=== PATIENT | male | born 1945 | race Hispanic/Latino ===

== ENCOUNTER 2017-11-08 11:10 | Emergency (ER) | payer MEDICARE ==
[2017-11-08 11:11] VITALS: BMI 27.2
--- NOTE | 2017-11-08 12:01 | C.PDOC ---
History Of Present Illness 71 year old male, whose PMHx includes HTN and Rheumatoid Arthritis, presents to the ED accompanied by his and son for evaluation of elevated blood pressure which began 4 days ago. Patient reports he has been compliant with his current medications and denies any recent changes in medication. Patient reports occasional dizziness and chest pressure. Patient denies any chest pain or pressure currently. Patient also reports that he feels like his eyes are burning and his mouth is dry. Patient has not spoken to his physician. He went to the pharmacy today to check his blood pressure, where it was elevated, and took two tablets of 25mg Metoprolol (normally one tablet BID). Patient currently denies fever, chills, headache, dizziness, extremity numbness/ weakness. Per son, this begain about 4 days ago whern pt was outside doing usual errands, came out and was sob, generalized weakness, with burning eyes, then checked bp which was elevated. pt with elevated bp daily since then Time Seen by Provider: 11/08/17 11:25 Chief Complaint (Nursing): High Blood Pressure History Per: Patient, Family History/Exam Limitations: no limitations Onset/Duration Of Symptoms: Days (4) Current Symptoms Are (Timing): Still Present Associated Symptoms: denies: Chest Pain, Dizziness, Focal Weakness, Headache Quality Of Symptoms: Asymptomatic Exacerbating Factor(s): Neg: Recently Missed Doses Of Medication, Recent Change In Medication Additional History Per: Patient Past Medical History Reviewed: Historical Data, Nursing Documentation, Vital Signs Vital Signs: Last Vital Signs Temp 98.5 F 11/08/17 14:10 Pulse 55 L 11/08/17 14:10 Resp 16 11/08/17 14:10 BP 159/84 H 11/08/17 14:10 Pulse Ox 97 11/08/17 14:30 - Medical History PMH: Arthritis, HTN Surgical History: No Surg Hx Family History: States: Unknown Family Hx - Social History Hx Alcohol Use: No Hx Substance Use: No - Immunization History Hx Tetanus Toxoid Vaccination: No Hx Influenza Vaccination: No Hx Pneumococcal Vaccination: No Review Of Systems Constitutional: Negative for: Fever, Chills Eyes: Positive for: Other (burning sensation to eyes ) ENT: Positive for: Other (dry mouth ) Cardiovascular: Positive for: Other (elevated blood pressure ). Negative for: Chest Pain Neurological: Positive for: Dizziness. Negative for: Weakness, Numbness, Headache Physical Exam - Physical Exam Appears: Non-toxic, No Acute Distress ED Course And Treatment - Laboratory Results Result Diagrams: 11/08/17 12:52 11/08/17 12:52 ECG: Interpreted By Me, Viewed By Me ECG Rhythm: Sinus Bradycardia Interpretation Of ECG: Sinus bradycardia with first degree AV block. Moderate voltage criteria for LVH, may be normal variant. Rate From EC O2 Sat by Pulse Oximetry: 97 (on RA ) Pulse Ox Interpretation: Normal Medical Decision Making Medical Decision Making: Progress: pt with elevated bp, occasional dizzness, chest pressure, weakness,. sob. CT Head, EKG, CXR, and bloodwork ordered and reviewed. 312 pm pt feeling much better at this time, head ct neg for acute pathology. CXR with: Biapical pleural thickening with upper lobe granulomatous changes. Mild venous congestion. Diffuse increased interstitial lung markings. Mild patchy increased markings at the left lung base. Right hilar prominence. Tortuous ectatic aorta. Mild cardiomegaly. results of cxr discussed with patient, will start pt on zpak, to f/u with pmd tomorrow to review bp medications.pt and fa,torin understand and agree to plan. Disposition Counseled Patient/Family Regarding: Studies Performed, Diagnosis, Need For Followup, Rx Given - Disposition Referrals: Yohannes Hall MD [Staff Provider] - Disposition: HOME/ ROUTINE Disposition Time: 15:17 Condition: IMPROVED Additional Instructions: Please follow up with Dr Hall tomorrow, bring lab reports and results of cxr and head ct with you. Please have Dr Hall re-evaluate your blood pressure medications. Return to ER for any worse symptoms. Take Zithromax as prescribed. Prescriptions: Azithromycin [Z-Jose] 250 mg PO DAILY #6 tab Instructions: Pneumonia, Adult (DC), High Blood Pressure (DC) Forms: [facility] (Portuguese), General Discharge Instructions - Clinical Impression Clinical Impression: Hypertension, Abnormal chest xray - PA / PRISON OFFICER / Resident Statement MD/DO has reviewed & agrees with the documentation as recorded. - Scribe Statement The provider has reviewed the documentation as recorded by the Scribe (Erika Villarreal) All medical record entries made by the Scribe were at my direction and personally dictated by me. I have reviewed the chart and agree that the record accurately reflects my personal performance of the history, physical exam, medical decision making, and the department course for this patient. I have also personally directed, reviewed, and agree with the discharge instructions and disposition.
--- NOTE | 2017-11-08 12:37 | CT ---
PROCEDURE: CT HEAD WITHOUT CONTRAST. HISTORY: Headache. Dizziness. Hypertension. COMPARISON: None available. TECHNIQUE: Axial computed tomography images were obtained through the head/brain without intravenous contrast. Radiation dose: Total exam DLP = 798 mGy-cm. This CT exam was performed using one or more of the following dose reduction techniques: Automated exposure control, adjustment of the mA and/or kV according to patient size, and/or use of iterative reconstruction technique. FINDINGS: HEMORRHAGE: No intracranial hemorrhage. BRAIN: No mass effect or edema. Scattered focal lucencies in the subcortical and periventricular white matter suggestive for chronic microvascular ischemic change. Mild cerebellar atrophy. VENTRICLES: Unremarkable. No hydrocephalus. CALVARIUM: Unremarkable. PARANASAL SINUSES: Mucosal thickening of the ethmoid air cells. MASTOID AIR CELLS: Unremarkable as visualized. No inflammatory changes. OTHER FINDINGS: Intracranial arterial calcifications. Soft tissue nodule seen within the posterior soft tissues posterior to the occipital cranium on series 2, image 6 measuring 1.8 centimeters. IMPRESSION: Chronic microvascular ischemic change. Mild cerebellar atrophy. Mucosal thickening of the ethmoid air cells. If focal neurologic deficit persists, consider MRI.
--- NOTE | 2017-11-08 12:49 | RAD ---
Chest x-ray two views History: Chest pain. Comparison: None available. Findings: Biapical pleural thickening with upper lobe granulomatous changes. Mild venous congestion. Diffuse increased interstitial lung markings. Mild patchy increased markings at the left lung base. Right hilar prominence. Tortuous ectatic aorta. Mild cardiomegaly. Degenerative changes in the spine shoulders. Impression: Biapical pleural thickening with upper lobe granulomatous changes. Mild venous congestion. Diffuse increased interstitial lung markings. Mild patchy increased markings at the left lung base. Right hilar prominence. Tortuous ectatic aorta. Mild cardiomegaly.
[2017-11-08 12:56] LABS: BASO % 0.3 % (0.0-2.0); EOS # 0.2 K/uL (0.0-0.7); EOS % 2.2 % (0.0-4.0); HEMOGLOBIN 14.8 g/dL (12.0-18.0); LYMPH % 28.3 % (20.0-40.0); MEAN CORPUSCULAR HEMOGLOBIN 30.1 pg (27.0-31.0); MEAN CORPUSCULAR HGB CONC 34.5 g/dL (33.0-37.0); MEAN PLATELET VOLUME 8.7 fL (7.2-11.7); MONO # 0.7 K/uL (0.0-0.8); NEUT # 4.2 K/uL (1.8-7.0); NEUT % 59.2 % (50.0-75.0); NRBC % 0.1 % (0.0-2.0); RBC 4.93 Mil/uL (4.40-5.90); RED CELL DISTRIBUTION WIDTH 13.5 % (11.5-14.5)
[2017-11-08 13:09] LABS: ALB/GLOB RATIO 1.3 (1.0-2.1); ALBUMIN 4.4 g/dL (3.5-5.0); ALT/SGPT 30 U/L (21-72); AST/SGOT 28 U/L (17-59); BLOOD UREA NITROGEN 16 mg/dL (9-20); CALCIUM 9.7 mg/dl (8.6-10.4); GFR AFRICAN-AMERICAN > 60; GFR NON-AFRICAN AMERICAN > 60
[2017-11-08 15:40] VITALS: PULSE 53; RESP 18; TEMP 97.7; O2SAT 98
[2017-11-08 15:41] VITALS: BP 173/91
--- NOTE | 2017-11-10 13:59 | CARD ---
APPROVED REPORT EKG Measurement Heart [id number] <Conclusion> Sinus bradycardia with 1st degree AV block Moderate voltage criteria for LVH, may be normal variant Borderline ECG
== END 2017-11-08 15:37 | disposition home or self-care (01) ==
LOC: C.ER 11:10
DX: I10 Essential (primary) hypertension (principal); R91.8 Other nonspecific abnormal finding of lung field; M06.9 Rheumatoid arthritis, unspecified

== ENCOUNTER 2018-04-03 13:49 | Inpatient (IN) | payer MEDICARE ==
[2018-04-03 13:49] VITALS: BMI 27.2
[2018-04-03] MEDS ORDERED: Sodium Chloride 0.9% 1,000 ML IV ONE (14:14)
--- NOTE | 2018-04-03 14:19 | C.PDOC ---
History Of Present Illness 72 year old male with PMHx of enlarged prostate presents to the ED complaining of dysuria for 4 days and spiking fever for [address]. [address] Emli De La Garza prescribed Flomax 4 days ago, but symptoms keep worsening. He states he called Dr. Emil De La Garza last night who prescribed Levaquin and Phenazopyridine and advised him to come to the ER for evaluation. Time Seen by Provider: 04/03/18 14:11 Chief Complaint (Nursing): Male Genitourinary History Per: Patient History/Exam Limitations: no limitations Onset/Duration Of Symptoms: Days Current Symptoms Are (Timing): Still Present Associated Symptoms: Fever, Urinary Symptoms. denies: Nausea, Vomiting, Diarrhea, Back Pain Past Medical History Reviewed: Historical Data, Nursing Documentation, Vital Signs Vital Signs: Last Vital Signs Temp 98.4 F 04/03/18 14:06 Pulse 107 H 04/03/18 14:06 Resp 18 04/03/18 14:06 BP 125/68 04/03/18 14:06 Pulse Ox 100 04/03/18 15:47 - Medical History PMH: Arthritis, HTN Other Surgeries: Hx of surgeries Family History: States: Unknown Family Hx - Social History Hx Alcohol Use: No Hx Substance Use: No - Immunization History Hx Tetanus Toxoid Vaccination: No Hx Influenza Vaccination: No Hx Pneumococcal Vaccination: No Review Of Systems Constitutional: Positive for: Fever Gastrointestinal: Negative for: Nausea, Vomiting, Abdominal Pain, Diarrhea Genitourinary: Positive for: Dysuria, Frequency. Negative for: Hematuria Musculoskeletal: Negative for: Back Pain Physical Exam - Physical Exam Appears: Non-toxic, No Acute Distress Skin: Normal Color, Warm, Dry, Other (Afebrile ) Head: Atraumatic Eye(s): bilateral: Normal Inspection Nose: Normal Oral Mucosa: Moist Neck: Supple Chest: Symmetrical Cardiovascular: Rhythm Regular Respiratory: Normal Breath Sounds, No Rales, No Rhonchi, No Wheezing Gastrointestinal/Abdominal: Soft, No Tenderness, No Guarding, No Rebound Back: No CVA Tenderness Neurological/Psych: Oriented x3, Normal Speech Gait: Steady ED Course And Treatment - Laboratory Results Result Diagrams: 04/03/18 14:40 04/03/18 14:40 Lab Interpretation: Abnormal (WBC 21.6 with left shift, BUN 26, Cr 2.0, Urine nitriti positive) O2 Sat by Pulse Oximetry: 100 (RA) Pulse Ox Interpretation: Normal Progress Note: Obucher catheter inserted post void and returned 300 ml urine. Reevaluation Time: 15:44 Reassessment Condition: Improved (Heart rate normal and patient is comfortable after boucher inserted.) - Physician Consult Information Outcome Of Conversation: Case discussed with Dr De La Garza and Dr Hall. Patient to be admitted for IV antibiotics. Medical Decision Making Medical Decision Making: Plan - Labs - IV Fluids - UA - Reassess Disposition - Disposition Disposition: HOSPITALIZED Disposition Time: 15:47 Condition: STABLE - POA Present On Arrival: None - Clinical Impression Clinical Impression: Pyelonephritis, acute, Prostatic hypertrophy - Scribe Statement The provider has reviewed the documentation as recorded by the Scribe Olga Sigala All medical record entries made by the Scribe were at my direction and personally dictated by me. I have reviewed the chart and agree that the record accurately reflects my personal performance of the history, physical exam, medical decision making, and the department course for this patient. I have also personally directed, reviewed, and agree with the discharge instructions and disposition.
[2018-04-03 14:44] LABS: BASO % 0.1 % (0.0-2.0); HEMOGLOBIN 13.1 g/dL (12.0-18.0); LYMPH # 1.4 K/uL (1.0-4.3); LYMPH % 6.7 % (20.0-40.0); MEAN CORPUSCULAR HEMOGLOBIN 29.8 pg (27.0-31.0); MEAN CORPUSCULAR HGB CONC 34.6 g/dL (33.0-37.0); MEAN PLATELET VOLUME 9.2 fL (7.2-11.7); MONO # 1.6 K/uL (0.0-0.8); MONO % 7.6 % (0.0-10.0); NEUT # 18.5 K/uL (1.8-7.0); NEUT % 85.6 % (50.0-75.0); PLATELET COUNT 135 K/uL (130-400); RED CELL DISTRIBUTION WIDTH 12.9 % (11.5-14.5)
[2018-04-03 14:51] LABS: WHITE BLOOD COUNT 21.6 K/uL (4.8-10.8)
[2018-04-03 14:57] LABS: ALB/GLOB RATIO 1.2 (1.0-2.1); ALBUMIN 3.6 g/dL (3.5-5.0)
[2018-04-03 15:06] LABS: SQUAMOUS EPITHIAL < 1 /hpf (0-5); URINE BACTERIA OCC (<OCC); URINE BILIRUBIN NEGATIVE (NEGATIVE); URINE BLOOD 1+ (NEGATIVE); URINE COLOR Amber (YELLOW); URINE GLUCOSE (UA) NORMAL (Normal); URINE PROTEIN NEGATIVE (NEGATIVE)
[2018-04-03 15:07] LABS: URINE CLARITY SLHAZY (Clear); URINE LEUKOCYTE ESTERASE TRACE Leu/uL (Negative)
[2018-04-03 15:15] LABS: BANDS 1 % (0-2); MONOCYTE 6 % (0-10); TOTAL CELLS COUNTED 100
[2018-04-03 15:16] LABS: LYMPHOCYTE 5 % (20-40); NEUTROPHIL 88 % (50-75); PLATELET ESTIMATE NORMAL (NORMAL)
[2018-04-03] MEDS ORDERED: Ciprofloxacin 400mg/200ml D5W 400 MG/200 ML BAG IV STA (15:39)
[2018-04-03] MEDS ORDERED: Ciprofloxacin 400mg/200ml D5W 400 MG/200 ML BAG IVPB ONE (16:00)
[2018-04-03 16:10] LABS: VENOUS BLOOD GAS BASE EXCESS -5.6 mmol/L (0.0-2.0); VENOUS BLOOD GAS PCO2 30 mmHg (40-60); VENOUS BLOOD GAS PO2 38 mm/Hg (30-55); VENOUS BLOOD PH 7.39 (7.32-7.43)
[2018-04-03 17:50] VITALS: RESP 20
[2018-04-03] MEDS: Sodium Chloride 0.9% 1,000 ML IV SCH (20:00)
[2018-04-03] MEDS: Ciprofloxacin 400mg/200ml D5W 400 MG/200 ML BAG IVPB SCH (22:26)
[2018-04-04] MEDS: Ciprofloxacin 400mg/200ml D5W 400 MG/200 ML BAG IVPB SCH ×2 (06:01→17:58)
[2018-04-04] MEDS: Sodium Chloride 0.9% 1,000 ML IV SCH ×3 (06:08→17:59)
[2018-04-04] MEDS: Aspirin 325 mg EC Tablets PO SCH (09:42)
[2018-04-04] MEDS: Enoxaparin 40 mg Syringe SC SCH (09:42)
[2018-04-04] MEDS ORDERED: Home Med 1 UNIT (Febuxostat [Uloric] 80 MG) PO SCH (10:00)
--- NOTE | 2018-04-04 15:13 | CP.PCM.HP ---
History of Present Illness - History of Present Illness History of Present Illness: 72 years old male underwent a cystoscopy on 03/30/[address] Teressa De La Garza for a urinary retention. 2 days later he developed hypogastric pain and fever. He was subscribed Levaquin and Pyridium on 04/02/[address] De La Garza, but the fever and the hypogastric pain persisted, and the patient was advised by his Urologist to go to the ED for evaluation. In the ED, he was found to have a wbc: 21,000 and a urinary retention. A Patel catheter was inserted and the patient was given IV Cipro after urine and blood cultures were done. The patient is known to have a rheumatoid arthritis, on Retuxan every 6 months, a pout, a hypertension. Present on Admission - Present on Admission Any Indicators Present on Admission: No Review of Systems - Constitutional Constitutional: Anorexia, Chills, Fatigue, Fever - Genitourinary Genitourinary: Dysuria, Bladder Distension Additional comments: Hypogastric pain. Past Patient History - Infectious Disease Hx of Infectious Diseases: None - Tetanus Immunizations Tetanus Immunization: Unknown - Past Medical History & Family History Past Medical History?: Yes - Past Social History Smoking Status: Heavy Smoker > 10 Cigarettes Daily Alcohol: None Drugs: Denies Home Situation {Lives}: With Family Domestic Violence: Negative - CARDIAC Hx Cardiac Disorders: Yes Hx Hypertension: Yes - PULMONARY Hx Respiratory Disorders: No - NEUROLOGICAL Hx Neurological Disorder: No - HEENT Hx HEENT Problems: No - RENAL Hx Pyelonephritis: Yes - ENDOCRINE/METABOLIC Hx Endocrine Disorders: No - HEMATOLOGICAL/ONCOLOGICAL Hx Blood Disorders: No - INTEGUMENTARY Hx Dermatological Problems: No - MUSCULOSKELETAL/RHEUMATOLOGICAL Hx Musculoskeletal Disorders: No Hx Falls: No - GASTROINTESTINAL Hx Gastrointestinal Disorders: No - GENITOURINARY/GYNECOLOGICAL Hx Genitourinary Disorders: Yes Hx Prostate Problems: Yes Other/Comment: hx of blood in the urine - PSYCHIATRIC Hx Psychophysiologic Disorder: No Hx Substance Use: No - SURGICAL HISTORY Hx Surgeries: Yes Other/Comment: right knee - ANESTHESIA Hx Anesthesia: Yes Hx Anesthesia Reactions: No Hx Malignant Hyperthermia: No Meds Allergies/Adverse Reactions: Allergies Allergy/AdvReac Type Severity Reaction Status Date / Time infliximab Allergy REDNESS Verified 04/03/18 14:03 Physical Exam - Constitutional Appears: No Acute Distress - Head Exam Head Exam: NORMAL INSPECTION - Eye Exam Eye Exam: Normal appearance - ENT Exam ENT Exam: Normal Exam - Neck Exam Neck exam: Positive for: Normal Inspection - Respiratory Exam Respiratory Exam: Clear to Auscultation Bilateral, NORMAL BREATHING PATTERN - Cardiovascular Exam Cardiovascular Exam: REGULAR RHYTHM - GI/Abdominal Exam GI & Abdominal Exam: Normal Bowel Sounds, Soft - Rectal Exam Rectal Exam: Deferred - Exam Exam: NORMAL INSPECTION - Extremities Exam Extremities exam: Positive for: normal inspection - Back Exam Back exam: NORMAL INSPECTION - Neurological Exam Neurological exam: Alert, Oriented x3 - Psychiatric Exam Psychiatric exam: Anxious - Skin Skin Exam: Dry, Intact, Normal Color, Warm Results - Vital Signs Recent Vital Signs: Last Vital Signs Temp 97.7 F 04/04/18 08:15 Pulse 65 04/04/18 08:15 Resp 20 04/04/18 08:15 BP 120/77 04/04/18 09:44 Pulse Ox 95 04/04/18 08:15 - Labs Result Diagrams: 04/03/18 14:40 04/03/18 14:40 Labs: Laboratory Results - last 24 hr 04/03/18 04/03/18 04/03/18 14:40 14:42 16:05 Neutrophils % (Manual) 88 H Band Neutrophils % 1 Lymphocytes % (Manual) 5 L Monocytes % (Manual) 6 Platelet Estimate Normal RBC Morphology Normal pO2 38 VBG pH 7.39 VBG pCO2 30 L VBG HCO3 19.9 VBG Total CO2 19.1 L VBG O2 Sat (Calc) 75.0 H VBG Base Excess -5.6 L VBG Potassium 2.6 L Sodium 142.0 Chloride 114.0 H Glucose 85 Lactate 1.0 Venous Blood Potassium 2.6 L Urine Color Drea Urine Clarity [place] Urine pH 5.0 Ur Specific [place] 1.013 Urine Protein Negative Urine Glucose (UA) Normal Urine Ketones Negative Urine Blood 1+ H Urine Nitrate Positive H Urine Bilirubin Negative Urine Urobilinogen 4.0 Ur Leukocyte Esterase Trace H Urine WBC (Auto) 10 H Urine RBC (Auto) 18 H Ur Squamous Epith Cells < 1 Urine Bacteria Occ H Assessment & Plan (1) Sepsis due to urinary tract infection Assessment and Plan: To continue IV Cipro 400 mg IV q 12h., pending urinary and blood cultures. Status: Acute (2) Urinary retention due to benign prostatic hyperplasia Assessment and Plan: To continue Patel catheter. Consult Dr Teressa De La Garza. Status: Acute (3) Rheumatoid arthritis Status: Chronic Decision To Admit - Pt Status Changed To: Hospital Disposition Of: Inpatient - Admit Certification Admit to Inpatient:: After my assessment, the patient will require hospitalization for at least two midnights. This is because of the severity of symptoms shown, intensity of services needed, and/or the medical risk in this patient being treated as an outpatient. - InPatient: Physician Admission Certification:: After my assessments, the patient requires hospitalization for at least two midnights. - . Bed Request Type: Regular Admitting Physician: Yohannes Hall
[2018-04-05] MEDS: Sodium Chloride 0.9% 1,000 ML IV SCH ×2 (05:58→09:31)
[2018-04-05] MEDS: Ciprofloxacin 400mg/200ml D5W 400 MG/200 ML BAG IVPB SCH (06:00)
[2018-04-05 07:24] LABS: BASO % 0.2 % (0.0-2.0); EOS # 0.1 K/uL (0.0-0.7); EOS % 1.1 % (0.0-4.0); HEMOGLOBIN 12.4 g/dL (12.0-18.0); LYMPH # 1.5 K/uL (1.0-4.3); LYMPH % 20.3 % (20.0-40.0); MEAN CELL VOLUME 87.4 fL (80.0-94.0); MEAN CORPUSCULAR HEMOGLOBIN 29.3 pg (27.0-31.0); MEAN CORPUSCULAR HGB CONC 33.5 g/dL (33.0-37.0); MEAN PLATELET VOLUME 9.7 fL (7.2-11.7); MONO # 0.5 K/uL (0.0-0.8); MONO % 6.6 % (0.0-10.0); NEUT # 5.4 K/uL (1.8-7.0); NEUT % 71.8 % (50.0-75.0); RBC 4.22 Mil/uL (4.40-5.90); RED CELL DISTRIBUTION WIDTH 13.3 % (11.5-14.5)
[2018-04-05 07:28] LABS: WHITE BLOOD COUNT 7.5 K/uL (4.8-10.8)
[2018-04-05 07:52] LABS: ALB/GLOB RATIO 1.1 (1.0-2.1); ALBUMIN 3.1 g/dL (3.5-5.0); ALT/SGPT 57 U/L (21-72); AST/SGOT 52 U/L (17-59); BLOOD UREA NITROGEN 18 mg/dL (9-20); GFR AFRICAN-AMERICAN > 60; GFR NON-AFRICAN AMERICAN > 60
[2018-04-05] MEDS: Enoxaparin 40 mg Syringe SC SCH (09:22)
[2018-04-05] MEDS: Aspirin 325 mg EC Tablets PO SCH (09:22)
--- NOTE | 2018-04-05 23:47 | CP.PCM.PN ---
Subjective - Date & Time of Evaluation Date of Evaluation: 04/05/18 Time of Evaluation: 13:45 - Subjective Subjective: Patient afebrile, feels better. WBC: 7,700 BUN: 17 creatinine: 1.0. Urine culture reveals Pseudomonas resistant to Cipro, Cefazolin and sensitive to Cefepime. Will discontinue Ciproand start Cefipime and ask for an ID evaluation , because the patient is suppose to get Retuxan treatment next week for his Rheumatoid arthritis. Patient was also seen by Dr Teressa De La Garza who consider to leave the Patel catheter in. Objective - Vital Signs/Intake and Output Vital Signs (last 24 hours): Temp Pulse Resp BP Pulse Ox 98.3 F 68 20 154/75 H 97 04/05/18 20:29 04/05/18 20:29 04/05/18 20:29 04/05/18 20:29 04/05/18 20:29 Intake and Output: 04/05/18 04/06/18 18:59 06:59 Intake Total 1280 480 Output Total 475 600 Balance 805 -120 - Medications Medications: Current Medications Acetaminophen (Tylenol 325mg Tab) 650 mg PO Q6 PRN PRN Reason: Fever >100.4 F Last Admin: 04/04/18 22:05 Dose: 650 mg Amlodipine Besylate (Norvasc) 5 mg PO DAILY [facility] Last Admin: 04/05/18 14:36 Dose: 5 mg Aspirin (Ecotrin) 325 mg PO DAILY [facility] Last Admin: 04/05/18 09:22 Dose: 325 mg Celecoxib (Celebrex) 200 mg PO DAILY [facility] Last Admin: 04/05/18 09:22 Dose: 200 mg Docusate Sodium (Colace) 100 mg PO BID [facility] Last Admin: 04/05/18 18:17 Dose: 100 mg Enoxaparin Sodium (Lovenox) 40 mg SC DAILY [facility] Last Admin: 04/05/18 09:22 Dose: 40 mg Home Med (Febuxostat [Uloric]) 80 mg PO DAILY [facility] Cefepime HCl 1 gm/ Dextrose 50 mls @ 100 mls/hr IVPB Q12H [facility] PRN Reason: Protocol Last Admin: 04/05/18 17:00 Dose: 100 mls/hr Metoprolol Tartrate (Lopressor) 25 mg PO BID [facility] Last Admin: 04/05/18 18:17 Dose: 25 mg Pneumococcal Polyvalent Vaccine (Pneumovax 23 Vaccine) 0.5 ml IM .ONCE ONE Stop: 04/06/18 10:01 Tamsulosin HCl (Flomax) 0.4 mg PO DAILY STEPHANIE Last Admin: 04/05/18 09:22 Dose: 0.4 mg - Labs Labs: 04/05/18 07:01 04/05/18 07:01 - Constitutional Appears: No Acute Distress - Head Exam Head Exam: NORMAL INSPECTION - Eye Exam Eye Exam: Normal appearance - ENT Exam ENT Exam: Normal Exam - Neck Exam Neck Exam: Normal Inspection - Respiratory Exam Respiratory Exam: Clear to Ausculation Bilateral, NORMAL BREATHING PATTERN - Cardiovascular Exam Cardiovascular Exam: REGULAR RHYTHM - GI/Abdominal Exam GI & Abdominal Exam: Soft, Normal Bowel Sounds - Rectal Exam Rectal Exam: Deferred - Exam Exam: NORMAL INSPECTION - Extremities Exam Extremities Exam: Normal Inspection - Back Exam Back Exam: NORMAL INSPECTION - Neurological Exam Neurological Exam: Alert, Awake, Normal Gait, Oriented x3 - Psychiatric Exam Psychiatric exam: Anxious - Skin Skin Exam: Dry, Intact, Warm Assessment and Plan (1) Sepsis due to urinary tract infection Assessment & Plan: To continue IV antibiotic. Status: Acute (2) Urinary retention due to benign prostatic hyperplasia Assessment & Plan: Patel catheter as per Urologist. Status: Acute (3) Rheumatoid arthritis Status: Chronic
[2018-04-06] MEDS ORDERED: Pneumococcal 23-Valent Vaccine IM ONE (10:00)
[2018-04-06] MEDS: Enoxaparin 40 mg Syringe SC SCH (11:40)
[2018-04-06] MEDS: Aspirin 325 mg EC Tablets PO SCH (11:40)
--- NOTE | 2018-04-06 12:30 | CP.PCM.CON ---
History of Present Illness - History of Present Illness History of Present Illness: 72 year old male with PMHx of enlarged prostate presents to the ED complaining of dysuria for 4 days and spiking fever for [address]. [address] Emil De La Garza prescribed Flomax 4 days ago, but symptoms keep worsening. He states he called Dr. Emil De La Garza last night who prescribed Levaquin and Phenazopyridine and advised him to come to the ER for evaluation. started on empiric IV rx for pyelo - Medical History PMH: Arthritis, HTN Review of Systems - Review of Systems All systems: reviewed and no additional remarkable complaints except - Constitutional Constitutional: Anorexia, Chills - EENT Eyes: absent: As Per HPI, Blind Spots, Blurred Vision, Change in Vision, Decreased Night Vision, Diplopia, Discharge, Dry Eye, Exophthalmos, Floaters, Irritation, Itchy Eyes, Loss of Peripheral Vision, Pain, Photophobia, Requires Corrective Lenses, Sees Flashes, Spots in Vision, Tunnel Vision, Other Visual Disturbances, Loss of Vision, Other Ears: absent: As Per HPI, Decreased Hearing, Ear Discharge, Ear Pain, Tinnitus, Abnormal Hearing, Disequilibrium, Dizziness, Other Nose/Mouth/Throat: absent: As Per HPI, Epistaxis, Nasal Congestion, Nasal Discharge, Nasal Obstruction, Nasal Trauma, Nose Pain, Post Nasal Drip, Sinus Pain, Sinus Pressure, Bleeding Gums, Change in Voice, Dental Pain, Dry Mouth, Dysphagia, Halitosis, Hoarsness, Lip Swelling, Mouth Lesions, Mouth Pain, Odynophagia, Sore Throat, Throat Swelling, Tongue Swelling, Facial Pain, Neck Pain, Neck Mass, Other - Cardiovascular Cardiovascular: absent: As Per HPI, Acrocyanosis, Chest Pain, Chest Pain at Rest , Chest Pain with Activity, Claudication, Diaphoresis, Dyspnea, Dyspnea on Exertion, Edema, Irregular Heart Rhythm, Pain Radiating to Arm/Neck/Jaw, Leg Edema, Leg Ulcers, Lightheadedness, Orthopnea, Palpitations, Paroxysmal Nocturnal Dyspnea, Pedal Edema, Radiating Pain, Rapid Heart Rate, Slow Heart Rate, Syncope, Other - Respiratory Respiratory: absent: As Per HPI, Cough, Dyspnea, Hemoptysis, Dyspnea on Exertion , Wheezing, Snoring, Stridor, Pain on Inspiration, Chest Congestion, Excessive Mucous Production, Change in Mucous Color, Pain with Coughing, Other - Gastrointestinal Gastrointestinal: absent: As Per HPI, Abdominal Pain, Belching, Bloating, Change in Bowel Habits, Change in Stool Character, Coffee Ground Emesis, Constipation, Cramping, Diarrhea, Dyspepsia, Dysphagia, Early Satiety, Excessive Flatus, Fecal Incontinence, Heartburn, Hematemesis, Hematochezia, Loose Stools, Melena, Nausea, Odynophagia, Temesmus, Vomiting, Other - Genitourinary Genitourinary: As Per HPI - Musculoskeletal Musculoskeletal: absent: As Per HPI, Abnormal Gait, Arthralgias, Atrophy, Back Pain, Deformity, Joint Swelling, Limited Range of Motion, Loss of Height, Muscle Cramps, Muscle Weakness, Myalgias, Neck Pain, Numbness, Radiating Pain into Limb, Stiffness, Tingling, Other - Integumentary Integumentary: absent: As Per HPI, Acne, Alopecia, Bleeding Lesions, Change in Hair, Change in Nails, Change in Pigmentation, Changing Lesions, Dry Skin, Erythema, Furuncle, Hirsutism, Lesions, New Lesions, Non-Healing Lesions, Photosensitivity, Pruritus, Rash, Skin Pain, Skin Ulcer, Sores, Striae, Swelling , Unusual Bruising, Wounds, Jaundice, Other - Neurological Neurological: absent: As Per HPI, Abnormal Gait, Abnormal Hearing, Abnormal Movements, Abnormal Speech, Behavioral Changes, Burning Sensations, Confusion, Convulsions, Disequilibrium, Dizziness, Numbness, Focal Weakness, Frequent Falls , Headaches, Lack of Coordination, Loss of Vision, Memory Loss, Paresthesias, Radicular Pain, Restless Legs, Sensory Deficit, Syncope, Tingling, Tremor, Vertigo, Weakness, Other Visual Disturbances, Other - Psychiatric Psychiatric: absent: As Per HPI, Abnormal Sleep Pattern, Anhedonia, Anxiety, Auditory Hallucinations, Behavioral Changes, Change in Appetite, Change in Libido, Confusion, Depression, Difficulty Concentrating, Hallucinations, Homicidal Ideation, Hopelessness, Irritability, Memory Loss, Mood Swings, Panic Attacks, Paranoia, Suicidal Ideation, Visual Hallucinations, Tactile Hallucinations, Other - Endocrine Endocrine: absent: As Per HPI, Change in Body Appearance, Change in Libido, Cold Intolorance, Deepening of Voice, Excessive Sweating, Fatigue, Flushing, Heat Intolorance, Increase in Ring/Shoe/Hat Size, Palpitations, Polydipsia, Polyphagia, Polyuria, Other - Hematologic/Lymphatic Hematologic: absent: As Per HPI, Easy Bleeding, Easy Bruising, Lymphadenopathy, Other Past Patient History - Infectious Disease Hx of Infectious Diseases: None - Tetanus Immunizations Tetanus Immunization: Unknown - Past Medical History & Family History Past Medical History?: Yes - Past Social History Smoking Status: Heavy Smoker > 10 Cigarettes Daily Alcohol: None Drugs: Denies Home Situation {Lives}: With Family Domestic Violence: Negative - CARDIAC Hx Cardiac Disorders: Yes Hx Hypertension: Yes - PULMONARY Hx Respiratory Disorders: No - NEUROLOGICAL Hx Neurological Disorder: No - HEENT Hx HEENT Problems: No - RENAL Hx Pyelonephritis: Yes - ENDOCRINE/METABOLIC Hx Endocrine Disorders: No - HEMATOLOGICAL/ONCOLOGICAL Hx Blood Disorders: No - INTEGUMENTARY Hx Dermatological Problems: No - MUSCULOSKELETAL/RHEUMATOLOGICAL Hx Musculoskeletal Disorders: No Hx Falls: No - GASTROINTESTINAL Hx Gastrointestinal Disorders: No - GENITOURINARY/GYNECOLOGICAL Hx Genitourinary Disorders: Yes Hx Prostate Problems: Yes Other/Comment: hx of blood in the urine - PSYCHIATRIC Hx Psychophysiologic Disorder: No Hx Substance Use: No - SURGICAL HISTORY Hx Surgeries: Yes Other/Comment: right knee - ANESTHESIA Hx Anesthesia: Yes Hx Anesthesia Reactions: No Hx Malignant Hyperthermia: No Meds Allergies/Adverse Reactions: Allergies Allergy/AdvReac Type Severity Reaction Status Date / Time infliximab Allergy REDNESS Verified 04/03/18 14:03 - Medications Medications: Current Medications Acetaminophen (Tylenol 325mg Tab) 650 mg PO Q6 PRN PRN Reason: Fever >100.4 F Last Admin: 04/04/18 22:05 Dose: 650 mg Amlodipine Besylate (Norvasc) 5 mg PO DAILY [facility] Last Admin: 04/06/18 11:40 Dose: 5 mg Aspirin (Ecotrin) 325 mg PO DAILY [facility] Last Admin: 04/06/18 11:40 Dose: 325 mg Celecoxib (Celebrex) 200 mg PO DAILY [facility] Last Admin: 04/06/18 11:40 Dose: 200 mg Docusate Sodium (Colace) 100 mg PO BID [facility] Last Admin: 04/06/18 11:40 Dose: 100 mg Enoxaparin Sodium (Lovenox) 40 mg SC DAILY [facility] Last Admin: 04/06/18 11:40 Dose: 40 mg Home Med (Febuxostat [Uloric]) 80 mg PO DAILY [facility] Cefepime HCl 1 gm/ Dextrose 50 mls @ 100 mls/hr IVPB Q12H [facility] PRN Reason: Protocol Last Admin: 04/06/18 04:45 Dose: 100 mls/hr Metoprolol Tartrate (Lopressor) 25 mg PO BID [facility] Last Admin: 04/06/18 11:43 Dose: 25 mg Tamsulosin HCl (Flomax) 0.4 mg PO DAILY [facility] Last Admin: 04/06/18 11:40 Dose: 0.4 mg Physical Exam - Constitutional Appears: Non-toxic, Chronically Ill - Head Exam Head Exam: NORMOCEPHALIC - Eye Exam Eye Exam: PERRL - ENT Exam ENT Exam: Mucous Membranes Dry - Neck Exam Neck exam: Negative for: Lymphadenopathy - Respiratory Exam Respiratory Exam: Decreased Breath Sounds - Cardiovascular Exam Cardiovascular Exam: REGULAR RHYTHM - GI/Abdominal Exam GI & Abdominal Exam: Diminished Bowel Sounds - Rectal Exam Rectal Exam: Deferred - Exam Exam: NORMAL INSPECTION - Extremities Exam Extremities exam: Negative for: pedal edema - Back Exam Back exam: absent: CVA tenderness (L), CVA tenderness (R) - Neurological Exam Neurological exam: Alert, CN II-XII Intact, Oriented x3, Reflexes Normal - Psychiatric Exam Psychiatric exam: Normal Mood - Skin Skin Exam: Dry Results - Vital Signs Recent Vital Signs: Last Vital Signs Temp 98.7 F 04/06/18 07:00 Pulse 68 04/06/18 07:00 Resp 20 04/06/18 07:00 BP 149/75 04/06/18 11:43 Pulse Ox 95 04/06/18 07:00 - Labs Result Diagrams: 04/05/18 07:01 04/05/18 07:01 Assessment & Plan (1) Prostatic hypertrophy Status: Acute (2) Pyelonephritis, acute Status: Acute (3) Sepsis due to urinary tract infection Status: Acute (4) Urinary retention due to benign prostatic hyperplasia Status: Acute (5) Rheumatoid arthritis Status: Chronic - Assessment and Plan (Free Text) Assessment: await cultures cont IV rx failed out pt rx
--- NOTE | 2018-04-06 17:33 | PCM.URO ---
Urology Progress Note - Objective Lab Studies: Reviewed (pt voiding well will check post void) Intake & Output: Intake & Output 04/05/18 04/06/18 04/06/18 18:59 06:59 18:59 Intake Total 1280 830 600 Output Total 475 1800 1350 Balance 805 -970 -750 Intake: Intake, IV Amount 800 50 Right Antecubital 800 50 Oral 480 780 600 Output: Urine 475 1800 1350 Urethral (Patel) 475 1800 1000 Urine, Voided 350 Other: # Bowel Movements 0 0 1 Vital Signs: Vital Signs - 24 hr 04/05/18 04/05/18 04/06/18 18:17 20:29 00:12 Temperature 98.3 F 98.1 F Pulse Rate 68 65 Respiratory 20 20 Rate Blood Pressure 125/77 154/75 H 155/76 H O2 Sat by Pulse 97 98 Oximetry 04/06/18 04/06/18 04/06/18 05:30 07:00 11:43 Temperature 98.7 F Pulse Rate 73 68 Respiratory 20 20 Rate Blood Pressure 154/75 H 149/75 149/75 O2 Sat by Pulse 97 95 Oximetry 04/06/18 15:00 Temperature 98.4 F Pulse Rate 60 Respiratory 20 Rate Blood Pressure 141/73 O2 Sat by Pulse 94 L Oximetry
--- NOTE | 2018-04-06 23:49 | CP.PCM.PN ---
Subjective - Date & Time of Evaluation Date of Evaluation: 04/06/18 Time of Evaluation: 17:45 - Subjective Subjective: Patient seen by Dr York and Dr Teressa De La Garza. Afebrile. Has no complaint. On IV Cefepime. Objective - Vital Signs/Intake and Output Vital Signs (last 24 hours): Temp Pulse Resp BP Pulse Ox 98.5 F 69 20 143/71 97 04/06/18 23:40 04/06/18 23:40 04/06/18 23:40 04/06/18 23:40 04/06/18 23:40 Intake and Output: 04/06/18 04/07/18 18:59 06:59 Intake Total 600 550 Output Total 1350 600 Balance -750 -50 - Medications Medications: Current Medications Acetaminophen (Tylenol 325mg Tab) 650 mg PO Q6 PRN PRN Reason: Fever >100.4 F Last Admin: 04/04/18 22:05 Dose: 650 mg Amlodipine Besylate (Norvasc) 5 mg PO DAILY [facility] Last Admin: 04/06/18 11:40 Dose: 5 mg Aspirin (Ecotrin) 325 mg PO DAILY [facility] Last Admin: 04/06/18 11:40 Dose: 325 mg Celecoxib (Celebrex) 200 mg PO DAILY [facility] Last Admin: 04/06/18 11:40 Dose: 200 mg Docusate Sodium (Colace) 100 mg PO BID [facility] Last Admin: 04/06/18 17:51 Dose: 100 mg Enoxaparin Sodium (Lovenox) 40 mg SC DAILY [facility] Last Admin: 04/06/18 11:40 Dose: 40 mg Home Med (Febuxostat [Uloric]) 80 mg PO DAILY [facility] Cefepime HCl 1 gm/ Dextrose 50 mls @ 100 mls/hr IVPB Q12H [facility] PRN Reason: Protocol Last Admin: 04/06/18 16:29 Dose: 100 mls/hr Metoprolol Tartrate (Lopressor) 25 mg PO BID [facility] Last Admin: 04/06/18 17:51 Dose: 25 mg Tamsulosin HCl (Flomax) 0.4 mg PO DAILY [facility] Last Admin: 04/06/18 11:40 Dose: 0.4 mg - Labs Labs: 04/05/18 07:01 04/05/18 07:01 - Constitutional Appears: No Acute Distress - Head Exam Head Exam: NORMAL INSPECTION - Eye Exam Eye Exam: Normal appearance, PERRL - ENT Exam ENT Exam: Normal Exam - Neck Exam Neck Exam: Normal Inspection - Respiratory Exam Respiratory Exam: Clear to Ausculation Bilateral, NORMAL BREATHING PATTERN - Cardiovascular Exam Cardiovascular Exam: REGULAR RHYTHM - GI/Abdominal Exam GI & Abdominal Exam: Soft, Normal Bowel Sounds - Rectal Exam Rectal Exam: Deferred - Extremities Exam Extremities Exam: Normal Inspection - Back Exam Back Exam: NORMAL INSPECTION - Neurological Exam Neurological Exam: Alert, Awake, Normal Gait, Oriented x3 - Psychiatric Exam Psychiatric exam: Anxious - Skin Skin Exam: Dry, Intact, Normal Color, Warm Assessment and Plan (1) Sepsis due to urinary tract infection Assessment & Plan: To continue IV antibiotic. Status: Acute (2) Urinary retention due to benign prostatic hyperplasia Assessment & Plan: As per Urology. Status: Acute (3) Rheumatoid arthritis Status: Chronic
[2018-04-07] MEDS: Aspirin 325 mg EC Tablets PO SCH (10:01)
[2018-04-07] MEDS: Enoxaparin 40 mg Syringe SC SCH (10:01)
[2018-04-07] MEDS: Home Med 1 UNIT (Febuxostat [Uloric] 80 MG) PO SCH (10:05)
--- NOTE | 2018-04-07 10:29 | US ---
Date of service: 04/06/2018 PROCEDURE: Ultrasound of the pelvis HISTORY: retention COMPARISON: None available. TECHNIQUE: Sonographic evaluation of the bladder and prostate were performed. FINDINGS: Unremarkable without wall thickening or intraluminal debris. No calculus or gross mass lesion. No free fluid in pelvis. Bilateral ureteral jets were not visualized. Prevoid Volume: 129.1 cc. Post void residual: 96.0 cc. Prostate volume measures 49.6 cc. IMPRESSION: Unremarkable sonogram of the bladder. No significant postvoid residual volume. Prostatomegaly.
--- NOTE | 2018-04-07 14:21 | PCM.URO ---
Urology Progress Note - General General: No Complaints - Subjective Abdominal Pain: No Flank Pain: No Nausea: No Vomiting: No Voiding Well: Yes Dysuria: No Hematuria: No [place] Stream: Yes Dsypnea: No Fever & Chills: No - Objective Lab Studies: Reviewed (decrased creat and decreased WBC) Intake & Output: Intake & Output 04/06/18 04/07/18 04/07/18 18:59 06:59 18:59 Intake Total 600 750 Output Total 1350 1400 Balance -750 -650 Intake: Intake, IV Amount 100 Right Antecubital 100 Oral 600 650 Output: Urine 1350 1400 Urethral (Patel) 1000 Urine, Voided 350 1400 Other: # Bowel Movements 1 0 Vital Signs: Vital Signs - 24 hr 04/06/18 04/06/18 04/06/18 15:00 17:51 23:40 Temperature 98.4 F 98.5 F Pulse Rate 60 69 Respiratory 20 20 Rate Blood Pressure 141/73 138/77 143/71 O2 Sat by Pulse 94 L 97 Oximetry 04/07/18 04/07/18 07:15 10:01 Temperature 98.1 F Pulse Rate 61 Respiratory 20 Rate Blood Pressure 148/76 148/76 O2 Sat by Pulse 95 Oximetry - Physical Exam Abdominal Exam: Soft, Non-Tender, Non-Distended Back: No CVA Tenderness - Plan Additional Information: IMP: UTI, pseudomonas. Imprvoved cliically. On cefepime, tamsulosin. discussed w pt.
--- NOTE | 2018-04-07 17:20 | CP.PCM.PN ---
Subjective - Date & Time of Evaluation Date of Evaluation: 04/07/18 Time of Evaluation: 09:00 - Subjective Subjective: T MAX LESS AWAKE ALERT ON BOARD IV RX REORDERD Objective - Vital Signs/Intake and Output Vital Signs (last 24 hours): Temp Pulse Resp BP Pulse Ox 98.1 F 60 20 131/74 95 04/07/18 15:30 04/07/18 15:30 04/07/18 15:30 04/07/18 15:30 04/07/18 15:30 Intake and Output: 04/07/18 04/07/18 06:59 18:59 Intake Total 750 480 Output Total 1400 700 Balance -650 -220 - Medications Medications: Current Medications Acetaminophen (Tylenol 325mg Tab) 650 mg PO Q6 PRN PRN Reason: Fever >100.4 F Last Admin: 04/04/18 22:05 Dose: 650 mg Amlodipine Besylate (Norvasc) 5 mg PO DAILY [facility] Last Admin: 04/07/18 10:01 Dose: 5 mg Aspirin (Ecotrin) 325 mg PO DAILY [facility] Last Admin: 04/07/18 10:01 Dose: 325 mg Celecoxib (Celebrex) 200 mg PO DAILY [facility] Last Admin: 04/07/18 10:05 Dose: 200 mg Docusate Sodium (Colace) 100 mg PO BID [facility] Last Admin: 04/07/18 10:01 Dose: 100 mg Enoxaparin Sodium (Lovenox) 40 mg SC DAILY [facility] Last Admin: 04/07/18 10:01 Dose: 40 mg Home Med (Febuxostat [Uloric]) 80 mg PO DAILY [facility] Last Admin: 04/07/18 10:05 Dose: 80 mg Cefepime HCl 1 gm/ Dextrose 50 mls @ 100 mls/hr IVPB Q12H [facility] PRN Reason: Protocol Last Admin: 04/07/18 17:08 Dose: 100 mls/hr Metoprolol Tartrate (Lopressor) 25 mg PO BID [facility] Last Admin: 04/07/18 10:01 Dose: 25 mg Tamsulosin HCl (Flomax) 0.4 mg PO DAILY [facility] Last Admin: 04/07/18 10:01 Dose: 0.4 mg - Labs Labs: 04/05/18 07:01 04/05/18 07:01 - Constitutional Appears: Non-toxic, Chronically Ill - Head Exam Head Exam: NORMOCEPHALIC - Eye Exam Eye Exam: PERRL - ENT Exam ENT Exam: Mucous Membranes Dry - Neck Exam Neck Exam: absent: Lymphadenopathy - Respiratory Exam Respiratory Exam: Decreased Breath Sounds - Cardiovascular Exam Cardiovascular Exam: REGULAR RHYTHM - GI/Abdominal Exam GI & Abdominal Exam: Distended, Soft - Rectal Exam Rectal Exam: Deferred - Exam Exam: NORMAL INSPECTION. absent: Uretheral Discharge - Extremities Exam Extremities Exam: absent: Pedal Edema - Back Exam Back Exam: absent: CVA tenderness (L), CVA tenderness (R) - Neurological Exam Neurological Exam: Alert, Awake, CN II-XII Intact, Oriented x3 Neuro motor strength exam: Left Upper Extremity: 4, Right Upper Extremity: 4, Left Lower Extremity: 4, Right Lower Extremity: 4 - Psychiatric Exam Psychiatric exam: Depressed Assessment and Plan (1) Prostatic hypertrophy Status: Acute (2) Pyelonephritis, acute Status: Acute (3) Sepsis due to urinary tract infection Status: Acute (4) Urinary retention due to benign prostatic hyperplasia Status: Acute (5) Rheumatoid arthritis Status: Chronic - Assessment and Plan (Free Text) Assessment: IV RX RENEWED
--- NOTE | 2018-04-08 00:01 | CP.PCM.PN ---
Subjective - Date & Time of Evaluation Date of Evaluation: 04/07/18 Time of Evaluation: 19:45 - Subjective Subjective: Patient complains of mild burning urination. Afebrile. He needs a total of 14 days of IV antibiotic, considering his compromised immune system, and near future RA treatment with Retuxan. Patient wants to go home with IV Cefepime for another 10 days. Will ask for a PICC line insertion. Objective - Vital Signs/Intake and Output Vital Signs (last 24 hours): Temp Pulse Resp BP Pulse Ox 98.1 F 60 20 132/72 95 04/07/18 15:30 04/07/18 15:30 04/07/18 15:30 04/07/18 17:54 04/07/18 15:30 Intake and Output: 04/07/18 04/08/18 18:59 06:59 Intake Total 480 290 Output Total 700 Balance -220 290 - Medications Medications: Current Medications Acetaminophen (Tylenol 325mg Tab) 650 mg PO Q6 PRN PRN Reason: Fever >100.4 F Last Admin: 04/04/18 22:05 Dose: 650 mg Amlodipine Besylate (Norvasc) 5 mg PO DAILY [facility] Last Admin: 04/07/18 10:01 Dose: 5 mg Aspirin (Ecotrin) 325 mg PO DAILY [facility] Last Admin: 04/07/18 10:01 Dose: 325 mg Celecoxib (Celebrex) 200 mg PO DAILY [facility] Last Admin: 04/07/18 10:05 Dose: 200 mg Docusate Sodium (Colace) 100 mg PO BID [facility] Last Admin: 04/07/18 17:54 Dose: 100 mg Enoxaparin Sodium (Lovenox) 40 mg SC DAILY [facility] Last Admin: 04/07/18 10:01 Dose: 40 mg Home Med (Febuxostat [Uloric]) 80 mg PO DAILY [facility] Last Admin: 04/07/18 10:05 Dose: 80 mg Cefepime HCl 1 gm/ Dextrose 50 mls @ 100 mls/hr IVPB Q12H [facility] PRN Reason: Protocol Last Admin: 04/07/18 17:08 Dose: 100 mls/hr Metoprolol Tartrate (Lopressor) 25 mg PO BID [facility] Last Admin: 04/07/18 17:54 Dose: 25 mg Tamsulosin HCl (Flomax) 0.4 mg PO DAILY [facility] Last Admin: 04/07/18 10:01 Dose: 0.4 mg - Labs Labs: 04/05/18 07:01 04/05/18 07:01 - Constitutional Appears: No Acute Distress, Chronically Ill - Head Exam Head Exam: NORMAL INSPECTION - Eye Exam Eye Exam: Normal appearance Pupil Exam: NORMAL ACCOMODATION - ENT Exam ENT Exam: Normal Exam - Neck Exam Neck Exam: Normal Inspection - Respiratory Exam Respiratory Exam: Clear to Ausculation Bilateral, NORMAL BREATHING PATTERN - Cardiovascular Exam Cardiovascular Exam: REGULAR RHYTHM - GI/Abdominal Exam GI & Abdominal Exam: Soft, Normal Bowel Sounds - Rectal Exam Rectal Exam: Deferred - Extremities Exam Extremities Exam: Normal Inspection - Back Exam Back Exam: CVA tenderness (L) - Neurological Exam Neurological Exam: Alert, Awake, Normal Gait, Oriented x3 - Psychiatric Exam Psychiatric exam: Anxious - Skin Skin Exam: Dry, Intact, Normal Color, Warm Assessment and Plan (1) Sepsis due to urinary tract infection Assessment & Plan: To continue IV Cefepime. Status: Acute (2) Urinary retention due to benign prostatic hyperplasia Assessment & Plan: Patel catheter removed. Status: Acute (3) Rheumatoid arthritis Status: Chronic
[2018-04-08 08:09] VITALS: O2SAT 96
[2018-04-08] MEDS: Aspirin 325 mg EC Tablets PO SCH (09:39)
[2018-04-08] MEDS: Home Med 1 UNIT (Febuxostat [Uloric] 80 MG) PO SCH (09:39)
[2018-04-08] MEDS: Enoxaparin 40 mg Syringe SC SCH (09:39)
--- NOTE | 2018-04-08 12:17 | RAD ---
Date of service: 04/08/2018 HISTORY: PICC Insertion COMPARISON: Chest radiograph dated 11/08/2017. FINDINGS: LUNGS: No active pulmonary disease. PLEURA: No significant pleural effusion identified, no pneumothorax apparent. CARDIOVASCULAR: Atherosclerotic aortic calcifications. Cardiomediastinal silhouette stably prominent. OSSEOUS STRUCTURES: Unchanged. VISUALIZED UPPER ABDOMEN: Normal. OTHER FINDINGS: New right upper extremity PICC with catheter tip in the SVC. IMPRESSION: New right upper extremity PICC in satisfactory position.
--- NOTE | 2018-04-08 14:00 | CP.PCM.PN ---
Subjective - Date & Time of Evaluation Date of Evaluation: 04/08/18 Time of Evaluation: 13:58 - Subjective Subjective: PT CLEARED FOR D/C HOME TODAY PER DR. MCCARTHY. PICC LINE INSERTED THIS MORNING AND IN PLACE. CLEARED BY DR. YEAGER, WHO RECS 10 DAYS TOTAL OF IV CEFEPIME. PT HAS 7 MORE DAYS LEFT (04/08-04/15). WILL GO HOME WITH HOME SERVICES AND HOME INFUSION; ALL ARRANGEMENTS DONE BY LINDA EDWARD. NO FURTHER ORDERS. SEE BELOW FOR D /C INFORMATION PROVIDED TO THE PT. -PER DR. MCCARTHY'S REQUEST, FOLLOW UP WITH DR. YEAGER (INFECTION DOCTOR) IN THE OFFICE WITHIN 1 WEEK---CALL THE OFFICE TOMORROW TO MAKE AN APPOINTMENT TIME. -FOLLOW UP WITH DR. MCCARTHY IN THE OFFICE WITHIN 2 WEEKS---CALL THE OFFICE TOMORROW TO MAKE AN APPOINTMENT TIME. -CONTINUE HOME MEDICATIONS USUAL. -PICC LINE WILL BE REMOVED BY THE HOME CARE AGENCY ONCE YOUR ANTIBIOTIC REGIMEN HAS BEEN COMPLETED. -ANTIBIOTICS TO BE FOLLOWED: CEFEPIME 1 GRAM IV INFUSION EVERY 12 HOURS FOR A TOTAL OF 7 MORE DAYS---START ON 04/08/18 AND LAST DOSE WILL BE GIVEN ON 04/15/18). -IF YOU HAVE ANY FURTHER QUESTIONS OR CONCERNS, CONTACT DR. MCCARTHY, DR. YEAGER, OR DR. ALEXANDRA. Objective - Vital Signs/Intake and Output Vital Signs (last 24 hours): Temp Pulse Resp BP Pulse Ox 98.5 F 74 20 136/80 96 04/08/18 08:00 04/08/18 08:00 04/08/18 08:00 04/08/18 09:39 04/08/18 08:00 Intake and Output: 04/08/18 04/08/18 06:59 18:59 Intake Total 740 Balance 740 - Medications Medications: Current Medications Acetaminophen (Tylenol 325mg Tab) 650 mg PO Q6 PRN PRN Reason: Fever >100.4 F Last Admin: 04/04/18 22:05 Dose: 650 mg Amlodipine Besylate (Norvasc) 5 mg PO DAILY [facility] Last Admin: 04/08/18 09:38 Dose: 5 mg Aspirin (Ecotrin) 325 mg PO DAILY [facility] Last Admin: 04/08/18 09:39 Dose: 325 mg Celecoxib (Celebrex) 200 mg PO DAILY [facility] Last Admin: 04/08/18 09:39 Dose: 200 mg Docusate Sodium (Colace) 100 mg PO BID [facility] Last Admin: 04/08/18 09:39 Dose: 100 mg Enoxaparin Sodium (Lovenox) 40 mg SC DAILY [facility] Last Admin: 04/08/18 09:39 Dose: 40 mg Home Med (Febuxostat [Uloric]) 80 mg PO DAILY [facility] Last Admin: 04/08/18 09:39 Dose: 80 mg Cefepime HCl 1 gm/ Dextrose 50 mls @ 100 mls/hr IVPB Q12H [facility] PRN Reason: Protocol Last Admin: 04/08/18 04:10 Dose: 100 mls/hr Metoprolol Tartrate (Lopressor) 25 mg PO BID [facility] Last Admin: 04/08/18 09:39 Dose: 25 mg Tamsulosin HCl (Flomax) 0.4 mg PO DAILY [facility] Last Admin: 04/08/18 09:38 Dose: 0.4 mg - Labs Labs: 04/05/18 07:01 04/05/18 07:01
[2018-04-08 16:21] VITALS: BP 117/75; PULSE 66; TEMP 97.9
--- NOTE | 2018-04-12 07:26 | CP.PCM.DIS ---
Provider - Provider Date of Admission: 04/03/18 15:40 Attending physician: Yohannes Hall MD Primary care physician: Yohannes Hall M.D. Consults: Dr York (Infectious disease), Dr Gold De La Garza( Urology). Time Spent in preparation of Discharge (in minutes): 30 Diagnosis - Discharge Diagnosis (1) Sepsis due to urinary tract infection Status: Acute (2) Urinary retention due to benign prostatic hyperplasia Status: Acute (3) Rheumatoid arthritis Status: Chronic Hospital Course - Lab Results Lab Results: Micro Results 04/03/18 21:58 Blood-Venous Blood Culture - Final NO GROWTH AFTER 5 DAYS 04/03/18 21:58 Blood-Venous Gram Stain - Final TEST NOT PERFORMED 04/03/18 21:58 Blood-Venous Blood Culture - Final NO GROWTH AFTER 5 DAYS 04/03/18 21:58 Blood-Venous Gram Stain - Final TEST NOT PERFORMED 04/05/18 12:36 Urine,Kidney Urine Culture - Final Pseudomonas Aeruginosa 04/03/18 14:42 Urine Urine Culture - Final Pseudomonas Aeruginosa Most Recent Lab Values WBC 7.5 K/uL (4.8-10.8) D 04/05/18 07:01 RBC 4.22 Mil/uL (4.40-5.90) L 04/05/18 07:01 Hgb 12.4 g/dL (12.0-18.0) 04/05/18 07:01 Hct 36.9 % (35.0-51.0) 04/05/18 07:01 MCV 87.4 fL (80.0-94.0) 04/05/18 07:01 MCH 29.3 pg (27.0-31.0) 04/05/18 07:01 MCHC 33.5 g/dL (33.0-37.0) 04/05/18 07:01 RDW 13.3 % (11.5-14.5) 04/05/18 07:01 Plt Count 142 K/uL (130-400) 04/05/18 07:01 MPV 9.7 fL (7.2-11.7) 04/05/18 07:01 Neut % (Auto) 71.8 % (50.0-75.0) 04/05/18 07:01 Lymph % (Auto) 20.3 % (20.0-40.0) 04/05/18 07:01 Banner % (Auto) 6.6 % (0.0-10.0) 04/05/18 07:01 Eos % (Auto) 1.1 % (0.0-4.0) 04/05/18 07:01 Baso % (Auto) 0.2 % (0.0-2.0) 04/05/18 07:01 Neut # (Auto) 5.4 K/uL (1.8-7.0) 04/05/18 07:01 Lymph # (Auto) 1.5 K/uL (1.0-4.3) 04/05/18 07:01 Banner # (Auto) 0.5 K/uL (0.0-0.8) 04/05/18 07:01 Eos # (Auto) 0.1 K/uL (0.0-0.7) 04/05/18 07:01 Baso # (Auto) 0.0 K/uL (0.0-0.2) 04/05/18 07:01 Neutrophils % (Manual) 88 % (50-75) H 04/03/18 14:40 Band Neutrophils % 1 % (0-2) 04/03/18 14:40 Lymphocytes % (Manual) 5 % (20-40) L 04/03/18 14:40 Monocytes % (Manual) 6 % (0-10) 04/03/18 14:40 Platelet Estimate Normal (NORMAL) 04/03/18 14:40 RBC Morphology Normal 04/03/18 14:40 pO2 38 mm/Hg (30-55) 04/03/18 16:05 VBG pH 7.39 (7.32-7.43) 04/03/18 16:05 VBG pCO2 30 mmHg (40-60) L 04/03/18 16:05 VBG HCO3 19.9 mmol/L 04/03/18 16:05 VBG Total CO2 19.1 mmol/L (22-28) L 04/03/18 16:05 VBG O2 Sat (Calc) 75.0 % (40-65) H 04/03/18 16:05 VBG Base Excess -5.6 mmol/L (0.0-2.0) L 04/03/18 16:05 VBG Potassium 2.6 mmol/L (3.6-5.2) L 04/03/18 16:05 Sodium 142.0 mmol/l (132-148) 04/03/18 16:05 Chloride 114.0 mmol/L (98-107) H 04/03/18 16:05 Glucose 85 mg/dl (75-110) 04/03/18 16:05 Lactate 1.0 mmol/L (0.7-2.1) 04/03/18 16:05 Sodium 143 mmol/L (132-148) 04/05/18 07:01 Potassium 3.8 mmol/L (3.6-5.2) 04/05/18 07:01 Chloride 110 mmol/L (98-107) H 04/05/18 07:01 Carbon Dioxide 24 mmol/L (22-30) 04/05/18 07:01 Anion Gap 14 (10-20) 04/05/18 07:01 BUN 18 mg/dL (9-20) 04/05/18 07:01 Creatinine 1.0 mg/dL (0.8-1.5) 04/05/18 07:01 Est GFR ( Amer) > 60 04/05/18 07:01 Est GFR (Non-Af Amer) > 60 04/05/18 07:01 Random Glucose 103 mg/dL (75-110) 04/05/18 07:01 Calcium 9.0 mg/dl (8.6-10.4) 04/05/18 07:01 Total Bilirubin 0.5 mg/dL (0.2-1.3) 04/05/18 07:01 AST 52 U/L (17-59) 04/05/18 07:01 ALT 57 U/L (21-72) 04/05/18 07:01 Alkaline Phosphatase 93 U/L (38-126) 04/05/18 07:01 Total Protein 5.8 g/dL (6.3-8.3) L 04/05/18 07:01 Albumin 3.1 g/dL (3.5-5.0) L 04/05/18 07:01 Globulin 2.7 gm/dL (2.2-3.9) 04/05/18 07:01 Albumin/Globulin Ratio 1.1 (1.0-2.1) 04/05/18 07:01 Venous Blood Potassium 2.6 mmol/L (3.6-5.2) L 04/03/18 16:05 Urine Color Drea (YELLOW) 04/03/18 14:42 Urine Clarity Slhazy (Clear) 04/03/18 14:42 Urine pH 5.0 (5.0-8.0) 04/03/18 14:42 Ur Specific [place] 1.013 (1.003-1.030) 04/03/18 14:42 Urine Protein Negative mg/dL (NEGATIVE) 04/03/18 14:42 Urine Glucose (UA) Normal mg/dL (Normal) 04/03/18 14:42 Urine Ketones Negative mg/dL (NEGATIVE) 04/03/18 14:42 Urine Blood 1+ (NEGATIVE) H 04/03/18 14:42 Urine Nitrate Positive (NEGATIVE) H 04/03/18 14:42 Urine Bilirubin Negative (NEGATIVE) 04/03/18 14:42 Urine Urobilinogen 4.0 mg/dL (0.2-1.0) 04/03/18 14:42 Ur Leukocyte Esterase Trace Giselle/uL (Negative) H 04/03/18 14:42 Urine WBC (Auto) 10 /hpf (0-5) H 04/03/18 14:42 Urine RBC (Auto) 18 /hpf (0-3) H 04/03/18 14:42 Ur Squamous Epith Cells < 1 /hpf (0-5) 04/03/18 14:42 Urine Bacteria Occ (<OCC) H 04/03/18 14:42 - Hospital Course Hospital Course: 72 years old male was brought by the family to the ED at [facility] on 04/03 complaining of a lower abdominal pain, fever, generalized weakness, poor appetite for the past 3 days. He underwent a cystoscopy by Dr Teressa De La Garza on 03/30 in his office for urinary retention. 2 days later, the patient started to have lower abdominal pain, difficulty in urinating, fever, generalized weakness. Dr Teressa De La Garza prescribed Levaquin PO and Pyridium, but the patient's symptoms did not resolve, and he was advised to go to the ED for further evaluation. In the ED, he was found to have a WBC 21,000 and a urinary retention. He was put on Cipro 400 mg IV q 12 h after urine and blood cultures were done. He is known to have a BPH, a hypertension, a rheumatoid arthritis on Retuxan IV q 6 months, a gout. Blood cultures were negative, but urine cultures revealed Pseudomonas resitant to Cipro whic was switched to Cefepime 1 g IVPB q 12 H. The patient improved rapidly. He became afebrile, WBC became normal. He was evaluated by Dr York ( ID ) who recommended IV Cefepime IV for a total of 14 days. He was also seen by Dr Gold De La Garza who discontinued the Patel catheter on 04/07/2018. A PICC line was inserted on 04/08/2018. The patient was asymptomatic. He was discharged home on 04/08/2008 in a stable condition. He will have Cefepime 1 g IVPB q 12 h for another 10 days. - Date & Time of H&P Date of H&P: 04/04/18 Discharge Exam - Head Exam Head Exam: NORMAL INSPECTION - Eye Exam Eye Exam: Normal appearance Pupil Exam: NORMAL ACCOMODATION - ENT Exam ENT Exam: Normal Exam - Neck Exam Neck exam: Normal Inspection - Respiratory Exam Respiratory Exam: Respiratory Distress, NORMAL BREATHING PATTERN - Cardiovascular Exam Cardiovascular Exam: REGULAR RHYTHM - GI/Abdominal Exam GI & Abdominal Exam: Normal Bowel Sounds, Unremarkable - Rectal Exam Rectal Exam: Deferred - Exam Exam: NORMAL INSPECTION - Extremities Exam Extremities exam: normal inspection - Back Exam Back exam: NORMAL INSPECTION - Neurological Exam Neurological exam: Alert, CN II-XII Intact, Normal Gait, Oriented x3 - Psychiatric Exam Psychiatric exam: Normal Affect - Skin Skin Exam: Dry, Intact, Normal Color, Warm Discharge Plan - Discharge Medications Prescriptions: Cefepime [Maxipime] 1 gm IVPB Q12H 7 Days vial - Follow Up Plan Condition: STABLE Disposition: HOME/ ROUTINE Instructions: Urinary Tract Infection, Adult (DC), Acute Pyelonephritis (DC) Additional Instructions: -PER DR. HALL'S REQUEST, FOLLOW UP WITH DR. YORK (INFECTION DOCTOR) IN THE OFFICE WITHIN 1 WEEK---CALL THE OFFICE TOMORROW TO MAKE AN APPOINTMENT TIME. -FOLLOW UP WITH DR. HALL IN THE OFFICE WITHIN 2 WEEKS---CALL THE OFFICE TOMORROW TO MAKE AN APPOINTMENT TIME. -CONTINUE HOME MEDICATIONS USUAL. -PICC LINE WILL BE REMOVED BY THE HOME CARE AGENCY ONCE YOUR ANTIBIOTIC REGIMEN HAS BEEN COMPLETED. -ANTIBIOTICS TO BE FOLLOWED: CEFEPIME 1 GRAM IV INFUSION EVERY 12 HOURS FOR A TOTAL OF 7 MORE DAYS---START ON 04/08/18 AND LAST DOSE WILL BE GIVEN ON 04/15/18). -IF YOU HAVE ANY FURTHER QUESTIONS OR CONCERNS, CONTACT DR. HALL, DR. YORK, OR DR. DE LA GARZA. Referrals: Rito York MD [Staff Provider] - Yohannes Hall MD [Staff Provider] - Gold De La Garza MD [Staff Provider] - Clinical Quality Measures - CQM - Heart Failure Follow Up Date (must be within 7 days from discharge): 04/16/18 Follow Up Time: 09:00 - Date & Time of Discharge Summary Date of Discharge Summary: 04/12/18 Time of Discharge Summary: 07:29
== END 2018-04-08 17:56 | disposition home or self-care (01) | DRG 872 ==
LOC: C.ER 13:49 → C.9E 15:40 → C.3T 16:09
PROVIDERS: ADMIT Internal Medicine Cardiovascular Disease; ATTEND Internal Medicine Cardiovascular Disease
DX: A41.9 Sepsis, unspecified organism (principal); N39.0 Urinary tract infection, site not specified; R65.20 Severe sepsis without septic shock; M06.9 Rheumatoid arthritis, unspecified; R33.8 Other retention of urine; I10 Essential (primary) hypertension; N40.1 Benign prostatic hyperplasia with lower urinary tract symptoms; F17.210 Nicotine dependence, cigarettes, uncomplicated; B96.5 Pseudomonas (aeruginosa) (mallei) (pseudomallei) as the cause of diseases classified elsewhere

== ENCOUNTER 2018-10-05 11:15 | Day surgery (SDC) | payer MEDICARE ==
[2018-04-27 07:40] VITALS: BMI 27.3
[2018-10-05] MEDS ORDERED: cefTRIAXone 1 gm 1 GM/100 ML BAG IVPB ONE (12:34)
[2018-10-05] MEDS ORDERED: Lidocaine 2% Jelly (Uro-Jet) ONE (12:34)
[2018-10-05] MEDS ORDERED: Midazolam 2 MG/2 ML VIAL ONE (13:45)
[2018-10-05] MEDS ORDERED: Propofol 10 mg/ml Inj (20 ML) ONE (13:52)
[2018-10-05] MEDS ORDERED: Oxycodone/Acetaminophen 5/325 mg Tab PO PRN (14:14)
[2018-10-05 16:20] VITALS: RESP 16
[2018-10-05 18:42] VITALS: BP 136/84; PULSE 58; TEMP 97.7; O2SAT 99
--- NOTE | 2018-10-19 05:53 | OP ---
PROCEDURE DATE: 10/05/2018 PREOPERATIVE DIAGNOSES: Hematuria, voiding dysfunction, irritative and obstructive urinary complaints. POSTOPERATIVE DIAGNOSES: Hematuria, voiding dysfunction, irritative and obstructive urinary complaints. PROCEDURE: Cystoscopy, bladder biopsy, and fulguration. COMPLICATIONS: There were no complications. ESTIMATED BLOOD LOSS: Less than 10 mL. SURGEON: Gold De La Garza MD FINDINGS: The urology operative findings are that the anterior urethra is normal. No stricture. The verumontanum is visually occlusive. He has an occlusive prostate There is a bladder lesion, there is moderate erythema, see the picture that was taken today, sent to biopsy from this. We fulgurated it to make sure there would be no bleeding. At the termination of the procedure, the patient has tolerated it well. INDICATIONS: See history and physical for details. A very pleasant gentleman with history of PROCEDURE IN DETAIL: After obtaining informed consent, the patient was placed on the table. Routine monitors were placed. Antibiotic prophylaxis is in use. A time-out was called to confirm patient and the patient is in lithotomy position. urethra. Anterior urethra is normal. No stricture. The verumontanum is visually occlusive. He has a fairly occlusive prostate for a man of his age. We now inspected the bladder at 37 degrees. There is along the posterior floor a lesion that looks concerning. We took multiple pictures and then we took a biopsy sample and then we also fulgurated and it was sent to the lab. Post biopsy, we examined closely, turned off all the larose to make sure there was no bleeding. We emptied the bladder. The patient tolerated the procedure well without complications. Rectal examination today showed a 28 to 30 g prostate, which was smooth. I am going to see how the patient does clinically. We are going to offer different options. We also need to make sure that we have upper tract imaging for the patient to make sure that there is no lesion within the kidney. Bryant De La Garza MD
--- NOTE | 2018-10-19 05:55 | HP ---
REASON FOR ADMISSION: Workup of hematuria. HISTORY OF PRESENT ILLNESS: A very pleasant gentleman who previously had cystoscopy from the office. At this point he reports last time that he had some difficulty with the catheter where he had bleeding. We discussed the options. We are going to bring him to the hospital. We discussed where to do it at but he still hematuria and he has significant voiding dysfunction. He is here now for further plans. He is here for cystoscopy and retrograde pyelograms. PAST MEDICAL AND SURGICAL HISTORY: As listed in the chart, otherwise unremarkable from the Urology standpoint. REVIEW OF SYSTEMS: Review of system listed above was noncontributory. MEDICATIONS: See the chart. SOCIAL HISTORY: unremarkable. PHYSICAL EXAMINATION: GENERAL: A well-nourished female, in no apparent distress. VITAL SIGNS: Within normal limits, in the chart. LUNGS: Clear. HEART: Normal S1 and S2. ABDOMEN: Overall soft and nontender. No flank mass appreciated. GENITOURINARY: Normal male phallus without discharge. No testicular mass. RECTAL: Deferred until we have done the cysto, but I mention now that his rectal exam shows a 20 to 30 g prostate, soft, smooth, essentially really unremarkable. DIAGNOSES: Voiding dysfunction, irritating and obstructive complaints, decreased force of stream, nocturia. Today, his score was about 18 to 20. I do not know what the numbers in front of me this minute, but he out with some assistance. There is some language barrier. After discussing various options with the patient, he is here now for the followin. Antibiotic prophylaxis will be provided. 2. Cystoscopy. We are going to plan to proceed with a cystoscopy, retrograde pyelogram and then possible biopsy or fulgurations depending on what we find clinically. Risks and benefits discussed with the patient at length. The risk of bleeding particularly from his history discussed at great length. Bryant De La Garza MD
== END 2018-10-05 18:20 | disposition home or self-care (01) ==
LOC: C.SDS 11:15
PROVIDERS: ATTEND Urology
DX: N30.81 Other cystitis with hematuria (principal); N32.9 Bladder disorder, unspecified; I10 Essential (primary) hypertension; N40.0 Benign prostatic hyperplasia without lower urinary tract symptoms
CPT/HCPCS: 52204; 88305; J0696